=== PATIENT | male | born 1990 | race Caucasian/White ===

== ENCOUNTER 2021-03-03 12:56 | Emergency (ER) | payer OTHER ==
--- OUTSIDE RECORDS SUMMARY | 2021-03-03 12:58 | XMS REPORT | Continuity of Care Document ---
:1990 Author Organization [facility] t Address [address] [place] [address] Dr. Tuttle [address] [place] [id number] Care Team Providers Name Role Phone Unavailable Unavailable Unavailable Problems This patient has no known problems. Allergies, Adverse Reactions, Alerts This patient has no known allergies or adverse reactions. Medications This patient has no known medications. Procedures This patient has no known procedures. Results This patient has no known results.
--- NOTE | 2021-03-03 14:38 | ER ---
Nurse's Notes [facility] Name: Kristofer Peña Age: 30 yrs Sex: Male : 1990 Arrival Date: 03/03/2021 Time: 13:01 Bed DX1 Private MD: Diagnosis: Laceration without foreign body of right middle finger without damage to nail Presentation: 03/03 13:15 Chief complaint: Patient states: was using a wrench and the wrenched slipped and his sv hand went forward into some metal. Laceration to the R posterior hand. Risk Assessment: Do you want to hurt yourself or someone else? Patient reports no desire to harm self or others. Onset of symptoms was March 03, 2021. 13:15 Method Of Arrival: Ambulatory sv 13:15 Acuity: ADRIA 4 sv 13:15 Coronavirus screen: At this time, the client does not indicate any symptoms associated sv with coronavirus-19. Ebola Screen: No symptoms or risks identified at this time. Initial Sepsis Screen: Does the patient meet any 2 criteria? No. Patient's initial sepsis screen is negative. Does the patient have a suspected source of infection? No. Patient's initial sepsis screen is negative. Triage Assessment: 13:17 General: Appears in no apparent distress. comfortable, Behavior is calm, cooperative, sv appropriate for age. Pain: Complains of pain in dorsum of right hand. Neuro: Level of Consciousness is awake, alert, obeys commands, Oriented to person, place, time, situation, Gait is steady. Respiratory: Respiratory effort is even, unlabored. Musculoskeletal: Range of motion: intact in all extremities. Injury Description: Laceration sustained to dorsum of right hand is 0.5 to 2.5 cm long, was sustained 30-60 minutes ago. Historical: - Allergies: 13:17 No Known Allergies; sv - PMHx: 13:54 Lupus; kg - Immunization history:: Last tetanus immunization: up to date. - Social history:: Smoking status: . Screenin:54 Abuse screen: Denies threats or abuse. Denies injuries from another. Nutritional kg screening: No deficits noted. Tuberculosis screening: No symptoms or risk factors identified. Fall Risk None identified. Assessment: 13:53 General: Appears in no apparent distress. Pain: Complains of pain in right hand Pain kg does not radiate. Pain currently is 2 out of 10 on a pain scale. at worst was 5 out of 10 on a pain scale. level that patient reports is acceptable is 2 out of 10 on a pain scale. Neuro: No deficits noted. Cardiovascular: No deficits noted. Respiratory: No deficits noted. GI: No deficits noted. : No deficits noted. EENT: No deficits noted. Derm: Injury Description: Laceration sustained to right hand no active bleeding noted at this time. Vital Signs: 13:15 BP 125 / 62; Pulse 79; Resp 18; Temp 98.3(TE); Pulse Ox 96% ; Weight 88.45 kg; Height 6 sv ft. 0 in. (182.88 cm); Pain 4/10; 15:01 BP 96 / 65; Pulse 70; Resp 17; Pulse Ox 99% on R/A; kg 13:15 Body Mass Index 26.45 (88.45 kg, 182.88 cm) sv ED Course: 13:01 Patient arrived in ED. ds1 13:16 Triage completed. sv 13:17 Arm band placed on. sv 13:26 Ness Deluca FNP-C is PHCP. kb 13:26 Eitan Puentes MD is Attending Physician. kb 13:51 Rosario Ochoa, DUSTY is Primary Nurse. kg 13:54 Patient has correct armband on for positive identification. kg 14:10 Wound care: to abrasion, located on dorsum of right hand was soaked in NS and Betadine ss solution. 15:02 No provider procedures requiring assistance completed. Patient did not have IV access kg during this emergency room visit. Administered Medications: 14:39 Drug: Lidocaine (1 %) 1 vials Volume: 5 ml; Route: Infiltration; kg Outcome: 14:38 Discharge ordered by MD. kb 15:02 Discharged to home ambulatory. kg 15:02 Condition: improved 15:02 Discharge instructions given to patient, Instructed on discharge instructions, follow up and referral plans. Demonstrated understanding of instructions, follow-up care. 15:02 Patient left the ED. kg Signatures: Ness Deluca FNP-C FNP-Christine Corley RN RN Tamela Bae ds1 Briseyda Monae RN RN ss Rosario Ochoa, DUSTY MONTANO kg Corrections: (The following items were deleted from the chart) 13:17 13:15 Chief complaint: Patient states: was using a wrench and the wrenched slipped and sv his hand went forward into some metal. Laceration to the R posterior hand. sv 13:17 13:15 Pulse 79bpm; Resp 18bpm; Pulse Ox 96%; Temp 98.3F Temporal; 88.45 kg; Height 6 sv ft. 0 in.; BMI: 26.4; Pain 4/10; sv
--- NOTE | 2021-03-03 14:38 | EDPHYS ---
Physician Documentation [facility] Name: Kristofer Peña Age: 30 yrs Sex: Male : 1990 Arrival Date: 03/03/2021 Time: 13:01 Bed DX1 Private MD: ED Physician Eitan Puentes HPI: 03/03 14:45 This 30 yrs old Male presents to ER via Ambulatory with complaints of Hand kb Injury. 14:45 The patient or guardian reports a laceration, clean, simple. The complaints affect the kb dorsal aspect of proximal phalanx of right middle finger. Context: The problem was sustained at work, resulted from pt was using a wrench and it slipped causing his hand to hit a piece of metal . Onset: The symptoms/episode began/occurred just prior to arrival. Modifying factors: The symptoms are alleviated by nothing, the symptoms are aggravated by movement. Associated signs and symptoms: The patient has no apparent associated signs or symptoms. Severity of symptoms: At their worst the symptoms were mild, in the emergency department the symptoms are unchanged. The patient has not experienced similar symptoms in the past. The patient has not recently seen a physician. 14:53 Pt has 0.5cm laceration to middle knuckle. Complete approximation when finger extended, kb but opens with flexion.. Historical: - Allergies: 13:17 No Known Allergies; sv - PMHx: 13:54 Lupus; kg - Immunization history:: Last tetanus immunization: up to date. - Social history:: Smoking status: . ROS: 14:44 Constitutional: Negative for fever, chills, and weight loss. kb 14:44 Skin: Positive for laceration(s), of the dorsal aspect of proximal phalanx of right middle finger. 14:44 All other systems are negative. Exam: 14:44 Constitutional: This is a well developed, well nourished patient who is awake, alert, kb and in no acute distress. Head/Face: Normocephalic, atraumatic. ENT: Moist Mucous membranes Respiratory: Respirations even and unlabored. No increased work of breathing, no retractions or nasal flaring. MS/ Extremity: Pulses equal, no cyanosis. Neurovascular intact. Full, normal range of motion. Neuro: Awake and alert, GCS 15, oriented to person, place, time, and situation. Moves all extremities. Normal gait. Psych: Awake, alert, with orientation to person, place and time. Behavior, mood, and affect are within normal limits. 14:44 Skin: injury, laceration(s), the wound is approximately 0.5 cm(s), of the dorsal aspect of proximal phalanx of right middle finger, that can be described as clean, no foreign body, linear, without bleeding. Vital Signs: 13:15 BP 125 / 62; Pulse 79; Resp 18; Temp 98.3(TE); Pulse Ox 96% ; Weight 88.45 kg; Height 6 sv ft. 0 in. (182.88 cm); Pain 4/10; 15:01 BP 96 / 65; Pulse 70; Resp 17; Pulse Ox 99% on R/A; kg 13:15 Body Mass Index 26.45 (88.45 kg, 182.88 cm) sv Laceration: 14:36 Wound Repair of 0.5cm ( 0.2in ) subcutaneous laceration to dorsal aspect of proximal kb phalanx of right middle finger. Linear shaped.. Distal neuro/vascular/tendon intact. Anesthesia: Wound infiltrated with 0.5 mls of 1% lidocaine. Wound prep: Extensive cleansing with betadine by me, Wound irrigation with saline by me. Skin closed with 1 5-0 Prolene using simple sutures and sterile technique. Patient tolerated well. MDM: 13:27 Patient medically screened. kb 14:35 Data reviewed: vital signs, nurses notes. Data interpreted: Pulse oximetry: on room air kb is 96 %. Interpretation: normal. Counseling: I had a detailed discussion with the patient and/or guardian regarding: the historical points, exam findings, and any diagnostic results supporting the discharge/admit diagnosis, the need for outpatient follow up, a family practitioner, to return to the emergency department if symptoms worsen or persist or if there are any questions or concerns that arise at home. 03/03 14:26 Order name: Dressing - Wound; Complete Time: 15:01 kb 03/03 14:26 Order name: Gloves, Sterile; Complete Time: 15:01 kb 03/03 14:26 Order name: Prolene, Sutures; Complete Time: 15:01 kb 03/03 14:26 Order name: Setup Suture Tray; Complete Time: 15:01 kb Administered Medications: 14:39 Drug: Lidocaine (1 %) 1 vials Volume: 5 ml; Route: Infiltration; kg Disposition: 17:10 Co-signature as Attending Physician, Eitan Puentes MD I agree with the assessment and rn plan of care. Attestation: The patient's history, exam findings, diagnostics, and a summary of any interventions or procedures was reviewed in detail with Ness ORTIZ. Disposition Summary: 03/03/21 14:38 Discharge Ordered Location: Home kb Condition: Stable kb Diagnosis - Laceration without foreign body of right middle finger without damage to nail kb Followup: kb - With: Emergency Department - When: As needed - Reason: Worsening of condition Followup: kb - With: Private Physician - When: 2 - 3 days - Reason: Recheck today's complaints, Continuance of care, Re-evaluation by your physician Discharge Instructions: - Discharge Summary Sheet kb - Laceration Care, Adult, [id number] kb Forms: - Medication Reconciliation Form kb - Thank You Letter kb - Antibiotic Education kb - Prescription Opioid Use kb Signatures: Ness Deluca FNP-C FNP-Christine Corley, RN Eitan Pena MD MD rn Graham, Kristen, RN RN kg
[2021-03-03 15:08] VITALS: TEMP 98.3
[2021-03-03 15:09] VITALS: BP 96/65; O2SAT 99
== END 2021-03-03 15:02 | disposition home or self-care (01) ==
LOC: ER 12:56
PROC: 0JQJ0ZZ Repair Right Hand Subcutaneous Tissue and Fascia, Open Approach (ICD-10-PCS; principal; 2021-03-03)
DX: S61.212A Laceration without foreign body of right middle finger without damage to nail, initial encounter (principal); W27.8XXA Contact with other nonpowered hand tool, initial encounter; Y92.89 Other specified places as the place of occurrence of the external cause; Y99.8 Other external cause status
CPT/HCPCS: 99283